=== PATIENT | male | born 1965 | race American Indian/Alaskan Native ===

== ENCOUNTER 2017-11-21 17:06 | Emergency (ER) | payer SELFPAY ==
[2017-11-21 17:16] VITALS: BP 165/93
--- NOTE | 2017-11-21 19:00 | XRay Report ---
FINAL REPORT EXAM: XR HAND 3+V LT HISTORY: crush injury TECHNIQUE: 3 views of left hand. PRIORS: None. FINDINGS: Fractures of the distal aspect of index and long finger distal phalanges, with mild distraction, greater in the index finger. No dislocation. Soft tissue edema and defect primarily in the index finger distal phalanx. Remainder of osseous and soft tissue structures grossly unremarkable. IMPRESSION: 1. Fractures in left index and long finger distal phalanges.
== END 2017-11-21 18:07 | disposition left against medical advice (07) ==
LOC: ED 17:06
DX: S69.92XA Unspecified injury of left wrist, hand and finger(s), initial encounter (principal); Z53.21 Procedure and treatment not carried out due to patient leaving prior to being seen by health care provider; X58.XXXA Exposure to other specified factors, initial encounter; Y93.89 Activity, other specified; Y92.89 Other specified places as the place of occurrence of the external cause; Y99.8 Other external cause status

== ENCOUNTER 2017-11-22 10:46 | Emergency (ER) | payer SELFPAY ==
[2017-11-22 11:08] VITALS: BP 159/99
[2017-11-22] MEDS ORDERED: MARCAINE 0.25% INFILTRATI ONE ×2 (11:57→14:00)
--- NOTE | 2017-11-22 11:59 | Emergency Department Report ---
Blank Doc - Documentation Documentation: Patient is a 52-year-old -[place] male who was at work yesterday approximately 3 PM and injured his left index finger. Patient's nail is partially lifted from the nail bed. Patient also has a subungual hematoma. Patient will have the finger irrigated patient will have a digital block with Marcaine and will attempt to reimplant the nail bed and do nail trepanation to release the blood from underneath the nail.
[2017-11-22] MEDS ORDERED: BOOSTRIX IM ONE (12:48)
--- NOTE | 2017-11-22 12:48 | Emergency Department Report ---
ED Upper Extremity Inj HPI - General Chief Complaint: Wound/Laceration Stated Complaint: CUT FINGER Time Seen by Provider: 11/22/17 11:57 Source: patient Mode of arrival: Ambulatory Limitations: No Limitations - History of Present Illness Initial Comments: This is a 52-year-old male nontoxic, well nourished in appearance, no acute signs of distress presents to the ED with c/o of left index finger contusion that occurred yesterday. Patient stated while he was at work a heavy box blade landed on his finger. Patient stated this caused him to have laceration and half of nail avulsion. Patient denies any decreased sensation, decreased ROM, numbness, tingling, fever, chills, nausea, vomiting, chest pain, short of breath. Patient denies being up-to-date with tetanus. Patient denies any allergies significant past medical history. MD Complaint: Injury to:: left, finger -: Last night Place: work Severity scale (0 -10): 8 Improves With: immobilization Worsens With: movement of extremity Associated Symptoms: denies other symptoms. denies: weakness, numbness, neck pain, suspects foreign body, nausea/vomiting, heard/felt popping sensat - Related Data Previous Rx's Medication Instructions Recorded Last Taken Type Acetaminophen/Codeine [Tylenol 1 tab PO Q6H PRN #12 tab 11/22/17 Unknown Rx /Codeine # 3 tab] Sulfamethoxazole/Trimethoprim 1 each PO BID #14 tablet 11/22/17 Unknown Rx [Bactrim DS TAB] Allergies Allergy/AdvReac Type Severity Reaction Status Date / Time No Known Allergies Allergy Verified 11/22/17 11:05 ED Review of Systems ROS: Stated complaint: CUT FINGER Other details as noted in HPI Constitutional: denies: chills, fever Eyes: denies: eye pain, eye discharge, vision change ENT: denies: ear pain, throat pain Respiratory: denies: cough, shortness of breath, wheezing Cardiovascular: denies: chest pain, palpitations Endocrine: no symptoms reported Gastrointestinal: denies: abdominal pain, nausea, diarrhea Genitourinary: denies: urgency, dysuria Musculoskeletal: denies: back pain, joint swelling, arthralgia Skin: denies: rash, lesions Neurological: denies: headache, weakness, paresthesias Psychiatric: denies: anxiety, depression Hematological/Lymphatic: denies: easy bleeding, easy bruising ED Past Medical Hx - Past Medical History Previous Medical History?: No - Surgical History Past Surgical History?: No - Social History Smoking Status: Never Smoker Substance Use Type: Alcohol - Medications Home Medications: Home Medications Medication Instructions Recorded Confirmed Last Taken Type Acetaminophen/Codeine [Tylenol 1 tab PO Q6H PRN #12 tab 11/22/17 Unknown Rx /Codeine # 3 tab] Sulfamethoxazole/Trimethoprim 1 each PO BID #14 tablet 11/22/17 Unknown Rx [Bactrim DS TAB] ED Physical Exam - General Limitations: No Limitations General appearance: alert, in no apparent distress - Head Head exam: Present: atraumatic, normocephalic - Eye Eye exam: Present: normal appearance - ENT ENT exam: Present: mucous membranes moist - Neck Neck exam: Present: normal inspection - Respiratory Respiratory exam: Present: normal lung sounds bilaterally. Absent: respiratory distress - Cardiovascular Cardiovascular Exam: Present: regular rate, normal rhythm. Absent: systolic murmur, diastolic murmur, rubs, gallop - GI/Abdominal GI/Abdominal exam: Present: soft, normal bowel sounds - Rectal Rectal exam: Present: deferred - Extremities Exam Extremities exam: Present: normal inspection, full ROM, tenderness, normal capillary refill. Absent: joint swelling - Expanded Upper Extremity Exam Left General: Present: normal inspection Shoulder Exam: Present: normal inspection, full ROM. Absent: tenderness, swelling Upper Arm exam: Present: normal inspection, full ROM. Absent: tenderness, swelling Elbow exam: Present: normal inspection, full ROM. Absent: tenderness, swelling Forearm Wrist exam: Present: normal inspection, full ROM. Absent: tenderness, swelling Hand Wrist exam: Present: normal inspection, full ROM, tenderness, abrasion, nail avulsion (half), subungual hematoma. Absent: swelling, laceration, ecchymosis, deformity, crepidus, dislocation, erythema, amputation Neuro motor exam: Present: wrist extension intact, thumb opposition intact, thumb IP flexion intact, thumb adduction intact, fingers 2-5 abduction intact Neurosensory exam: Present: 2-point discrimination, radial nerve intact, ulnar nerve intact, median nerve intact Vascular: Present: vascular compromise, normal capillary refill - Back Exam Back exam: Present: normal inspection, full ROM - Neurological Exam Neurological exam: Present: alert, oriented X3, normal gait - Psychiatric Psychiatric exam: Present: normal affect, normal mood - Skin Skin exam: Present: warm, dry, intact, normal color. Absent: rash ED Course Vital Signs 11/22/17 11:05 Temperature 97.9 F Pulse Rate 97 H Respiratory 18 Rate Blood Pressure 159/99 O2 Sat by Pulse 100 Oximetry - Reevaluation(s) Reevaluation #1: 11/22/17 12:56 Patient is speaking in full sentences with no signs of distress noted. - Procedure Description Procedures done: Patient first soaked hand with betadine and water. Under sterile field, I used Betadine to clean the area. I then used 40 mL of normal saline to flush the area. I then used 0.5% Marcaine and injected 6 mL for a digital block. I then used cautery to make a small incision in the nail bed to evacuate the blood. Bleeding noted but is under control. Patient tolerated procedure well with no signs of distress. Sterile dressing and splint placed. ED Medical Decision Making - Medical Decision Making This is a 52-year-old male that presents with finger fracture, nail avulsion. Patient is stable and was examined by me. See procedure note for nail bleed evacuation. A sterile dressing has been applied. Placed a metal finger splint. Post splint assessment: neurovasular intact; normal cap refill <2 second; normal sensation; denies decreaed sensation; normal ROM of digits. Patient was educated on proper wound care. Patient is discharged with Bactrim and Tylenol with codeine and was instructed not to operate any machinery while taking Tylenol with codeine due to drowsiness. Patient received a tetanus booster. Patient was instructed to refer to Follow-up with a primary care doctor in 3-5 days or if symptoms worsen and continue return to emergency room as soon as possible. At time of discharge, the patient does not seem toxic or ill in appearance. No acute signs of distress noted. Patient agrees to discharge treatment plan of care. No further questions noted by the patient. Critical care attestation.: If time is entered above; I have spent that time in minutes in the direct care of this critically ill patient, excluding procedure time. ED Disposition Clinical Impression: Subungual hematoma Nail avulsion, finger Qualifiers: Encounter type: initial encounter Qualified Code(s): S61.309A - Unspecified open wound of unspecified finger with damage to nail, initial encounter Fracture of phalanx of index finger Qualifiers: Encounter type: initial encounter Fracture type: closed Phalanx: distal Fracture alignment: nondisplaced Laterality: left Qualified Code(s): S62.661A - Nondisplaced fracture of distal phalanx of left index finger, initial encounter for closed fracture Disposition: TO HOME OR SELFCARE Is pt being admited?: No Does the pt Need Aspirin: No Condition: Stable Instructions: Finger Fracture (ED), Acute Wound Care (ED), Acetaminophen/ Codeine (By mouth) Additional Instructions: Follow-up with a orthopedic doctor in 3-5 days or if symptoms worsen and continue return to emergency room as soon as possible. Prescriptions: Acetaminophen/Codeine [Tylenol /Codeine # 3 tab] 1 tab PO Q6H PRN #12 tab PRN Reason: Pain , Severe (7-10) Sulfamethoxazole/Trimethoprim [Bactrim DS TAB] 1 each PO BID #14 tablet Referrals: PRIMARY MD DIONNA [Primary Care Provider] - 3-5 Days BRIAN ESPITIA MD [Staff Physician] - 3-5 Days [facility] [Outside] - 3-5 Days Forms: Work/School Release Form(ED)
[2017-11-22] MEDS ORDERED: MARCAINE 0.5% INFILTRATI ONE ×2 (13:11→13:13)
== END 2017-11-22 14:32 | disposition home or self-care (01) ==
LOC: ED 10:46
DX: S61.309A Unspecified open wound of unspecified finger with damage to nail, initial encounter (principal); S62.661A Nondisplaced fracture of distal phalanx of left index finger, initial encounter for closed fracture; W20.8XXA Other cause of strike by thrown, projected or falling object, initial encounter; Y93.89 Activity, other specified; Y92.69 Other specified industrial and construction area as the place of occurrence of the external cause; Y99.8 Other external cause status
CPT/HCPCS: 90471; 90715; 99282